=== PATIENT | female | born 1980 | race Caucasian/White ===

== ENCOUNTER 2016-11-25 18:38 | Emergency (ER) | payer MEDICAID, OTHER ==
[~2016-11-25] VITALS: Ht 170.2 cm; Wt 60.0 kg
[2016-11-25 18:42] VITALS: BP 123/70; PULSE 84; RESP 16; TEMP 98.2; O2SAT 98
[2016-11-25] MEDS ORDERED: ONDANSETRON ODT 4 MG TAB PO ONE (19:15)
[2016-11-25] MEDS ORDERED: LIDOCAINE HCL 1% 50 ML VIAL IM ONE (19:15)
[2016-11-25] MEDS ORDERED: cefTRIAXone 250 MG VIAL IM ONE (19:15)
[2016-11-25] MEDS ORDERED: metroNIDAZOLE 500 MG TAB PO ONE (19:15)
--- NOTE | 2016-11-25 19:56 | PD ---
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 She states she recently had unprotected sex with a new partner who is positive for chlamydia. She is a history of HPV. No other complaints. History Past Medical History Narrative Medical HPV LMP: 11/01/16 Social History Tobacco Use: No Allergies-Medications (Allergen,Severity, Reaction): Coded Allergies: No Known Allergies (Unverified , 11/25/16) Review of Systems Except as stated in HPI: all other systems reviewed are Neg Physical Exam Narrative GENERAL: Well-appearing 36-year-old woman, no acute distress. SKIN: Focused skin assessment warm/dry. CARDIOVASCULAR: Regular rate and rhythm. No murmur appreciated. RESPIRATORY: No accessory muscle use. Clear to auscultation. Breath sounds equal bilaterally. GASTROINTESTINAL: Abdomen soft, non-tender, nondistended. Hepatic and splenic margins not palpable. MUSCULOSKELETAL: No obvious deformities. PELVIC: Normal external female genitalia. Some scant white discharge in the vaginal vault. No rashes or lesions in the vagina. No cervical motion tenderness or adnexal masses or uterine enlargement. Data Data Last Documented VS Vital Signs Date Time Temp Pulse Resp B/P Pulse Ox O2 Delivery O2 Flow Rate FiO2 11/25/16 18:42 98.2 84 16 123/70 98 Orders Urinalysis - C+S If Indicated (11/25/16 19:14) Ceftriaxone Inj (Rocephin Inj) (11/25/16 19:15) Lidocaine 1% Inj (50 Ml) (Xylocaine 1% I (11/25/16 19:15) Metronidazole (Flagyl) (11/25/16 19:15) Ed Urine Pregnancytest Poc (11/25/16 19:14) Ondansetron Odt (Zofran Odt) (11/25/16 19:15) MDM Medical Decision Making Medical Screen Exam Complete: Yes Emergency Medical Condition: Yes Differential Diagnosis Cervicitis, vaginitis, UTI, other Narrative Course Medical decision-making new 36-year-old with vaginal discharge pelvic pain and new sexual contact known to be positive for Chlamydia. Recommend empiric treatment. 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 Any sexual partners you have should be tested and treated as well. You should not have sex until you have no symptoms, and your partners tested and treated as well. Med/Other Pt SpecificInfo: No Change to Meds Disposition: 01 DISCHARGE HOME Condition: Sarabjit Gant MD November 25, 2016 19:56
[2016-11-25 20:32] LABS: BACTERIA, URINE RARE /hpf; BLOOD, URINE NEG (NEG); COMMENT (UR) CULT NOT INDICATED; CULTURE IF INDICATED CULT NOT INDICATED; GLUCOSE,URINE NEG (NEG); KETONE, URINE NEG (NEG); MUCUS URINE FEW /lpf (OCC); NITRITE,URINE NEG (NEG); PH, URINE 6.5 (5.0-8.5); SQUAMOUS EPITHELIAL CELL URINE 1 /hpf (0-5); URINE COLOR YELLOW (YELLW/STRAW)
== END 2016-11-25 20:40 | disposition home or self-care (01) ==
LOC: NEPD 18:38
DX: N72 Inflammatory disease of cervix uteri (principal)
CPT/HCPCS: 81001; 84703; 96372; 99284; J0696

== ENCOUNTER 2017-04-05 19:42 | Emergency (ER) | payer SELFPAY ==
[~2017-04-05] VITALS: Ht 172.7 cm; Wt 51.0 kg
[2017-04-05 19:46] VITALS: BP 119/74; PULSE 89; RESP 15; TEMP 98.9; O2SAT 100
--- NOTE | 2017-04-05 20:16 | PD ---
HPI Chief Complaint: Hip Injury Time Seen by Provider: 20:10 Travel History International Travel<30 days: No Contact w/Intl Traveler<30days: No Traveled to known affect area: No History of Present Illness HPI 36 year-old female presents to emergency for evaluation right hip pain. Patient states when she was a teenager she sustained a hairline fracture to the right hip. She states over the last month or 2 she has been having right hip pain and it is worsened with her long ambulation. She states at work she is always on her feet. Denies any new injury. Pain is a constant, aching, severe at times. States that "nothing she is taking is working" denies any fever or chills. Denies IV drug use. No other symptoms to report. History Past Medical Histgory Medical History: Denies Significant Hx LMP: 03/31/17 Past Surgical History Surgical History: No Previous Surgery Social History Alcohol Use: Yes (occu) Tobacco Use: Yes (1/2 PPD) Allergies-Medications (Allergen,Severity, Reaction): Coded Allergies: No Known Allergies (Unverified , 04/05/17) Reported Meds & Prescriptions Reported Meds & Active Scripts Active No Active Prescriptions or Reported Medications Review of Systems Except as stated in HPI: all other systems reviewed are Neg Physical Exam Narrative GENERAL: Well-nourished, well-developed female patient, ambulatory with a nonantalgic gait no acute distress. SKIN: Focused skin assessment warm/dry. HEAD: Normocephalic. EYES: No scleral icterus. No injection or drainage. NECK: Supple, trachea midline. No JVD or lymphadenopathy. CARDIOVASCULAR: Regular rate and rhythm without murmurs, gallops, or rubs. RESPIRATORY: Breath sounds equal bilaterally. No accessory muscle use. MUSCULOSKELETAL: No cyanosis, or edema. Patient has full flexion extension of the right hip. No tenderness with palpation. No deformity. No shortening or rotation of the affected extremity. Distal pulses are palpable. BACK: Nontender without obvious deformity. No CVA tenderness. Data Data Last Documented VS Vital Signs Date Time Temp Pulse Resp B/P (MAP) Pulse Ox O2 Delivery O2 Flow Rate FiO2 04/05/17 19:46 98.9 89 15 119/74 (89) 100 Room Air MDM Medical Screen Exam Complete: Yes Emergency Medical Condition: No Differential Diagnosis Chronic Right hip pain Narrative Course 36 year-old female presents to the department for evaluation right hip pain. This is going on for 1-2 months with no preceding injury. She has not sought follow-up. She is telling me that her [id number] attempts for pain control have all failed. There is high suspicion that this may be drug-seeking behavior. The extremity is neurovascularly intact. There is no deformity. There is no tenderness to palpation. At this time there are no urgent or emergent needs for medical intervention identified. A medical screening exam was performed: At the time of evaluation the presenting medical condition was determined not to be of an emergent nature. The patient was given the option of receiving additional care, but declined. Patient was given options for additional community resources from which to obtain care. The Patient Has Been advised to seek medical attention for their presenting complaint. The patient has been advised to return to the ER at any time if an emergent condition develops. Primary Impression: Encounter for medical screening examination Scripts No Active Prescriptions or Reported Meds Condition: Jewell Parker Apr 05, 2017 20:16
== END 2017-04-05 20:22 | disposition left against medical advice (07) ==
LOC: NEPK 19:42
DX: M25.551 Pain in right hip (principal)
CPT/HCPCS: 99281